=== PATIENT | male | born 1945 | race African-American/Black ===

== ENCOUNTER 2017-02-12 16:11 | Inpatient (IN) | payer MEDICARE, MEDICAID ==
[~2017-02-12] VITALS: Ht 188 cm; Wt 73.9 kg
[~2017-02-12 16:11] MED LIST: CEPHALEXIN500 MG ORAL
[2017-02-12] MEDS ORDERED: Famotidine 20 MG/ 2ML VIAL IVP ONE (16:30)
[2017-02-12] MEDS ORDERED: ACETAMINOPHEN-1 EAC1 ORAL ×2 (17:26)
[2017-02-12] MEDS ORDERED: AMLODIPINE BESYL5 MG ORAL (17:26)
[2017-02-12] MEDS ORDERED: SIMVASTATIN20 MG ORAL (17:26)
[2017-02-12 17:43] VITALS: BP 181/93
[2017-02-12 17:44] LABS: BASOPHILS % (AUTO) 1.5 % (0.0-2.0); EOSINOPHILS % (AUTO) 0.8 % (0.0-3.0); LYMPHOCYTES % (AUTO) 45.5 % (20.0-45.0); MEAN CORPUSCULAR HEMOGLOBIN 32.5 PG (27.0-31.0); MEAN CORPUSCULAR HGB CONC 35.7 G/DL (32.0-36.0); MEAN CORPUSCULAR VOLUME 91 FL (80-99); MEAN PLATELET VOLUME 7.4 FL (6.5-10.1); MONOCYTES % (AUTO) 6.2 % (1.0-10.0); PLATELET COUNT 140 K/UL (150-450); RED CELL DISTRIBUTION WIDTH 11.5 % (11.6-14.8); WHITE BLOOD COUNT 4.1 K/UL (4.8-10.8)
[2017-02-12 17:45] LABS: APPEARANCE,URINE CLEAR; KETONES,URINE NEGATIVE (NEGATIVE); LEUKOCYTE ESTERASE ,URINE 1+ (NEGATIVE); NITRITE,URINE NEGATIVE (NEGATIVE); PH,URINE 6 (4.5-8.0); PROTEIN,URINE NEGATIVE (NEGATIVE); UROBILINOGEN,URINE 4 MG/DL (0.0-1.0)
[2017-02-12 17:52] LABS: RBC,URINE 0-2 /HPF (0 - 0); WBC,URINE 0-2 /HPF (0 - 0)
[2017-02-12 18:05] LABS: ALANINE AMINOTRANSFERASE 30 U/L (3-41); ALBUMIN/GLOBULIN RATIO 1.2 (1.0-2.7); ANION GAP 18 (5-15); ASPARTATE AMINO TRANSFERASE 30 U/L (5-40); CALCIUM 9.6 mg/dL (8.6-10.2); CARBON DIOXIDE 23 mEQ/L (20-30); CHLORIDE 95 mEQ/L (98-107); CREATININE 1.1 mg/dL (0.7-1.2); HEMOLYSIS 12; LIPASE 42 U/L (< 60); POTASSIUM 4.2 mEQ/L (3.4-4.9); SODIUM 136 mEQ/L (135-145); TOTAL PROTEIN 7.8 g/dL (6.6-8.7); TROPONIN I < 0.30 ng/mL (<=0.30)
[2017-02-12 18:16] LABS: CKMB 2.3 ng/mL (< 6.7)
[2017-02-12 20:15] VITALS: BP 179/95
--- NOTE | 2017-02-12 22:49 | Emergency Room Report ---
History of Present Illness General Chief Complaint: General Complaint Source: Medical Record Present Illness HPI 71-year-old male presents to ED for evaluation. Patient states he has no complaints. Feels okay. [id number]. Patient has dementia. PMD Dr. Velázquez stated that patient has been having increased weakness and reduced appetite. Unable to care for himself. No reported fevers chills. No reported chest pain or shortness of breath. No other aggravating relieving factors. No other associated symptoms Allergies: Coded Allergies: No Known Allergies (Unverified , 10/04/13) Patient History Past Medical History: GERD Past Surgical History: none Pertinent Family History: none Social History: Denies: alcohol use, drug use, smoking Immunizations: UTD Reviewed Nursing Documentation: PMH: Agreed, PSxH: Agreed Nursing Documentation-PMH Hx Cardiac Problems: No Hx Hypertension: No Hx Pacemaker: No Hx Asthma: No Hx COPD: No Hx Diabetes: No Hx Cancer: No Hx Gastrointestinal Problems: Yes - gerd Hx Dialysis: No Hx Neurological Problems: No Hx Cerebrovascular Accident: No Hx Seizures: No Review of Systems All Other Systems: negative except mentioned in HPI Physical Exam Vital Signs Date Time Temp Pulse Resp B/P Pulse Ox O2 Delivery O2 Flow Rate FiO2 02/12/17 16:19 98.1 78 16 140/80 98 Room Air Sp02 EP Interpretation: reviewed, normal General Appearance: no apparent distress, GCS 15, non-toxic, other - dementia Head: normocephalic Eyes: bilateral eye PERRL, bilateral eye normal inspection ENT: normal ENT inspection Neck: normal inspection Respiratory: chest non-tender, lungs clear, normal breath sounds, speaking full sentences Cardiovascular #1: regular rate, rhythm, no edema Gastrointestinal: normal bowel sounds, non tender, soft, non-distended, no guarding, no rebound Rectal: deferred Genitourinary: no CVA tenderness Musculoskeletal: normal inspection Neurologic: other - dementia Psychiatric: other - dementia Skin: normal inspection Lymphatic: normal inspection Medical Decision Making Diagnostic Impression: Primary Impression: Failure to thrive Qualified Codes: R62.7 - Adult failure to thrive Additional Impression: Weakness ER Course Hospital Course 71-year-old male presenting to ED with generalized weakness, unable to care for self Differential diagnoses include: Pneumonia, UTI, sepsis, dehydration, failure to thrive Clinical course Patient placed on stretcher. On cardiac nurse specialist with tachycardia. After initial history and physical, I ordered labs, IV fluids, UA. Labs - no leukocytosis, hb/hct stable, electrolytse ok, trop negative Case discussed with Dr Velázquez and they agreed to admit patient to their service for further care and support I feel this is a highly complex case requiring extensive working including EKG/ Rhythm strip, Xray/CT/US, Blood/urine lab work, repeat exams while in ED, and administration of strong opiates/narcotics for pain control, admission to hospital or close patient follow up. Diagnosis - failure to thrive, weakness Patient admitted to floor in serious condition Labs Test 02/12/17 17:31 White Blood Count 4.1 K/UL (4.8-10.8) Red Blood Count 5.10 M/UL (4.70-6.10) Hemoglobin 16.6 G/DL (14.2-18.0) Hematocrit 46.5 % (42.0-52.0) Mean Corpuscular Volume 91 FL (80-99) Mean Corpuscular Hemoglobin 32.5 PG (27.0-31.0) Mean Corpuscular Hemoglobin Concent 35.7 G/DL (32.0-36.0) Red Cell Distribution Width 11.5 % (11.6-14.8) Platelet Count 140 K/UL (150-450) Mean Platelet Volume 7.4 FL (6.5-10.1) Neutrophils (%) (Auto) 46.0 % (45.0-75.0) Lymphocytes (%) (Auto) 45.5 % (20.0-45.0) Monocytes (%) (Auto) 6.2 % (1.0-10.0) Eosinophils (%) (Auto) 0.8 % (0.0-3.0) Basophils (%) (Auto) 1.5 % (0.0-2.0) Urine Color Yellow Urine Appearance Clear Urine pH 6 (4.5-8.0) Urine Specific [place] 1.015 (1.005-1.035) Urine Protein Negative (NEGATIVE) Urine Glucose (UA) Negative (NEGATIVE) Urine Ketones Negative (NEGATIVE) Urine Occult Blood Negative (NEGATIVE) Urine Nitrite Negative (NEGATIVE) Urine Bilirubin Negative (NEGATIVE) Urine Urobilinogen 4 MG/DL (0.0-1.0) Urine Leukocyte Esterase 1+ (NEGATIVE) Urine RBC 0-2 /HPF (0 - 0) Urine WBC 0-2 /HPF (0 - 0) Urine Squamous Epithelial Cells None /LPF (NONE/OCC) Urine Bacteria None /HPF (NONE) Sodium Level 136 mEQ/L (135-145) Potassium Level 4.2 mEQ/L (3.4-4.9) Chloride Level 95 mEQ/L (98-107) Carbon Dioxide Level 23 mEQ/L (20-30) Anion Gap 18 (5-15) Blood Urea Nitrogen 14 mg/dL (7-23) Creatinine 1.1 mg/dL (0.7-1.2) Estimat Glomerular Filtration Rate mL/min (>60) Glucose Level 117 mg/dL (74-106) Calcium Level 9.6 mg/dL (8.6-10.2) Total Bilirubin 0.4 mg/dL (0.0-1.2) Aspartate Amino Transf (AST/SGOT) 30 U/L (5-40) Alanine Aminotransferase (ALT/SGPT) 30 U/L (3-41) Alkaline Phosphatase 89 U/L (40-129) Creatine Kinase MB 2.3 ng/mL (< 6.7) Troponin I < 0.30 ng/mL (<=0.30) Total Protein 7.8 g/dL (6.6-8.7) Albumin 4.4 g/dL (3.5-5.2) Globulin 3.4 g/dL Albumin/Globulin Ratio 1.2 (1.0-2.7) Lipase 42 U/L (< 60) Last Vital Signs Date Time Temp Pulse Resp B/P Pulse Ox O2 Delivery O2 Flow Rate FiO2 02/12/17 20:15 97.3 87 22 179/95 98 Room Air Status: improved Disposition: ADMITTED INPATIENT Condition: Serious Referrals: FRANK VELÁZQUEZ (PCP) KELLY CAMPBELL M.D. February 12, 2017 22:49
[2017-02-12] MEDS ORDERED: Zolpidem 5mg tab ORAL PRN (23:00)
[2017-02-12] MEDS ORDERED: Mylanta II UD 30ml ORAL PRN (23:00)
[2017-02-12] MEDS ORDERED: Miralax 17gm pkt ORAL PRN (23:00)
[2017-02-12] MEDS ORDERED: LORazepam Inj 2mg/ml 1ml IV PRN (23:00)
[2017-02-13] VITALS (7 sets, daily range): BP systolic 131–161; BP diastolic 76–110
[2017-02-13] MEDS: Morphine Sulfate 2mg/ml Inj IVP PRN ×2 (06:22→18:00)
[2017-02-13 07:08] LABS: EOSINOPHILS % (AUTO) 0.3 % (0.0-3.0); LYMPHOCYTES % (AUTO) 17.2 % (20.0-45.0); MEAN CORPUSCULAR HEMOGLOBIN 30.3 PG (27.0-31.0); MEAN CORPUSCULAR HGB CONC 33.8 G/DL (32.0-36.0); MEAN CORPUSCULAR VOLUME 90 FL (80-99); MEAN PLATELET VOLUME 7.3 FL (6.5-10.1); MONOCYTES % (AUTO) 4.5 % (1.0-10.0); PLATELET COUNT 182 K/UL (150-450); RED BLOOD COUNT 5.16 M/UL (4.70-6.10); RED CELL DISTRIBUTION WIDTH 11.3 % (11.6-14.8); WHITE BLOOD COUNT 5.1 K/UL (4.8-10.8)
[2017-02-13 08:30] LABS: ALANINE AMINOTRANSFERASE 29 U/L (3-41); ALBUMIN/GLOBULIN RATIO 1.4 (1.0-2.7); ANION GAP 18 (5-15); ASPARTATE AMINO TRANSFERASE 30 U/L (5-40); CALCIUM 9.6 mg/dL (8.6-10.2); CARBON DIOXIDE 22 mEQ/L (20-30); CHLORIDE 95 mEQ/L (98-107); CHOLESTEROL 169 mg/dL (< 200); CHOLESTEROL/HDL RATIO 2.3 (3.3-4.4); HEMOLYSIS 83; LDL CHOLESTEROL (CALC.) 73 mg/dL (60-99); POTASSIUM 4.5 mEQ/L (3.4-4.9); SODIUM 135 mEQ/L (135-145); TOTAL PROTEIN 7.3 g/dL (6.6-8.7)
--- NOTE | 2017-02-13 15:15 | History and Physical ---
History of Present Illness General Date patient seen: February 13, 2017 Reason for Hospitalization: General Complaint Present Illness HPI 71-year-old male with hx of HTN, dementia presented to ED for evaluation of increased weakness and reduced appetite. Unable to care for himself. No reported fevers chills. No reported chest pain or shortness of breath. He had an arterial doppler us of legs in the assisted living facility, which was positive. Therefore he is admitted to [facility] [place] for further evaluation of increasing weakness. Allergies: Coded Allergies: No Known Allergies (Unverified , 10/04/13) Medication History Scheduled Amlodipine Besylate* (Amlodipine Besylate*), 5 MG ORAL BID, (Reported) Simvastatin (Zocor), 20 MG ORAL BEDTIME, (Reported) Scheduled PRN Acetaminophen With Codeine (T#3) (Tylenol #3 Tab*), 1 TAB ORAL Q4H PRN for For Pain, (Reported) Acetaminophen With Codeine (T#3) (Tylenol #3 Tab*), 1 TAB ORAL EVERY 8 HOURS PRN for For Pain, (Reported) Discontinued Medications Cephalexin* (Keflex*), 500 MG ORAL EVERY 6 HOURS Discontinued Reason: Therapy completed Patient History Healthcare decision maker pt A&Ox4 Resuscitation status Full Code Advanced Directive on File Physical Exam General Appearance: WD/WN, no apparent distress Lines, tubes and drains: peripheral, central line HEENT: normocephalic, atraumatic Neck: non-tender, normal alignment Respiratory/Chest: chest wall non-tender, lungs clear Cardiovascular/Chest: normal peripheral pulses, normal rate Abdomen: normal bowel sounds, non tender Genitourinary/Rectal: normal genital exam Extremities: normal range of motion, non-pitting Neurologic: plan consultant II-XII grossly normal Last 24 Hour Vital Signs Date Time Temp Pulse Resp B/P Pulse Ox O2 Delivery O2 Flow Rate FiO2 02/13/17 12:15 97.1 89 20 131/89 97 Room Air 02/13/17 08:16 96 140/76 02/13/17 08:00 98.0 96 16 140/76 98 Room Air 02/13/17 04:00 97.5 62 20 137/77 98 Room Air 02/13/17 00:00 97.5 85 20 160/109 98 Room Air 02/12/17 20:15 97.3 87 22 179/95 98 Room Air 02/12/17 20:10 98.1 74 13 173/111 99 Room Air 02/12/17 19:49 173/111 02/12/17 17:43 69 10 181/93 100 Room Air 02/12/17 16:19 98.1 78 16 140/80 98 Room Air Intake and Output 02/12/17 02/13/17 19:00 07:00 Output Total 410 ml 700 ml Balance -410 ml -700 ml Output Urine Total 410 ml 700 ml Laboratory Tests Test 02/12/17 17:31 02/13/17 04:35 White Blood Count 4.1 K/UL (4.8-10.8) L 5.1 K/UL (4.8-10.8) Red Blood Count 5.10 M/UL (4.70-6.10) 5.16 M/UL (4.70-6.10) Hemoglobin 16.6 G/DL (14.2-18.0) 15.6 G/DL (14.2-18.0) Hematocrit 46.5 % (42.0-52.0) 46.3 % (42.0-52.0) Mean Corpuscular Volume 91 FL (80-99) 90 FL (80-99) Mean Corpuscular Hemoglobin 32.5 PG (27.0-31.0) H 30.3 PG (27.0-31.0) Mean Corpuscular Hemoglobin Concent 35.7 G/DL (32.0-36.0) 33.8 G/DL (32.0-36.0) Red Cell Distribution Width 11.5 % (11.6-14.8) L 11.3 % (11.6-14.8) L Platelet Count 140 K/UL (150-450) L 182 K/UL (150-450) Mean Platelet Volume 7.4 FL (6.5-10.1) 7.3 FL (6.5-10.1) Neutrophils (%) (Auto) 46.0 % (45.0-75.0) 77.0 % (45.0-75.0) H Lymphocytes (%) (Auto) 45.5 % (20.0-45.0) H 17.2 % (20.0-45.0) L Monocytes (%) (Auto) 6.2 % (1.0-10.0) 4.5 % (1.0-10.0) Eosinophils (%) (Auto) 0.8 % (0.0-3.0) 0.3 % (0.0-3.0) Basophils (%) (Auto) 1.5 % (0.0-2.0) 1.0 % (0.0-2.0) Urine Color Yellow Urine Appearance Clear Urine pH 6 (4.5-8.0) Urine Specific [place] 1.015 (1.005-1.035) Urine Protein Negative (NEGATIVE) Urine Glucose (UA) Negative (NEGATIVE) Urine Ketones Negative (NEGATIVE) Urine Occult Blood Negative (NEGATIVE) Urine Nitrite Negative (NEGATIVE) Urine Bilirubin Negative (NEGATIVE) Urine Urobilinogen 4 MG/DL (0.0-1.0) H Urine Leukocyte Esterase 1+ (NEGATIVE) H Urine RBC 0-2 /HPF (0 - 0) H Urine WBC 0-2 /HPF (0 - 0) Urine Squamous Epithelial Cells None /LPF (NONE/OCC) Urine Bacteria None /HPF (NONE) Sodium Level 136 mEQ/L (135-145) 135 mEQ/L (135-145) Potassium Level 4.2 mEQ/L (3.4-4.9) 4.5 mEQ/L (3.4-4.9) Chloride Level 95 mEQ/L (98-107) L 95 mEQ/L (98-107) L Carbon Dioxide Level 23 mEQ/L (20-30) 22 mEQ/L (20-30) Anion Gap 18 (5-15) H 18 (5-15) H Blood Urea Nitrogen 14 mg/dL (7-23) 11 mg/dL (7-23) Creatinine 1.1 mg/dL (0.7-1.2) 1.0 mg/dL (0.7-1.2) Estimat Glomerular Filtration Rate mL/min (>60) mL/min (>60) Glucose Level 117 mg/dL (74-106) H 101 mg/dL (74-106) Calcium Level 9.6 mg/dL (8.6-10.2) 9.6 mg/dL (8.6-10.2) Total Bilirubin 0.4 mg/dL (0.0-1.2) 0.7 mg/dL (0.0-1.2) Aspartate Amino Transf (AST/SGOT) 30 U/L (5-40) 30 U/L (5-40) Alanine Aminotransferase (ALT/SGPT) 30 U/L (3-41) 29 U/L (3-41) Alkaline Phosphatase 89 U/L (40-129) 70 U/L (40-129) Creatine Kinase MB 2.3 ng/mL (< 6.7) Troponin I < 0.30 ng/mL (<=0.30) Total Protein 7.8 g/dL (6.6-8.7) 7.3 g/dL (6.6-8.7) Albumin 4.4 g/dL (3.5-5.2) 4.3 g/dL (3.5-5.2) Globulin 3.4 g/dL 3.0 g/dL Albumin/Globulin Ratio 1.2 (1.0-2.7) 1.4 (1.0-2.7) Lipase 42 U/L (< 60) Triglycerides Level 107 mg/dL (< 150) Cholesterol Level 169 mg/dL (< 200) LDL Cholesterol 73 mg/dL (60-99) HDL Cholesterol 75 mg/dL (> 60) H Cholesterol/HDL Ratio 2.3 (3.3-4.4) L Thyroid Stimulating Hormone (TSH) 1.100 uIU/mL (0.300-4.500) Height (Feet): 6 Height (Inches): 2.00 Weight (Pounds): 163 Medications Current Medications Medications (Trade) Dose Ordered Sig/Ac Route PRN Reason Start Time Stop Time Status Last Admin Dose Admin Acetaminophen (Tylenol) 650 mg Q4H PRN ORAL fever 02/12/17 23:00 03/14/17 22:59 Al Hydroxide/Mg Hydroxide (Mylanta II) 30 ml Q6H PRN ORAL dyspepsia 02/12/17 23:00 03/14/17 22:59 Amlodipine Besylate (Norvasc) 5 mg BID ORAL 02/13/17 09:00 03/15/17 08:59 02/13/17 08:16 Clonidine HCl (Catapres) 0.1 mg Q4H PRN ORAL For High Blood Pressure 02/12/17 23:00 03/14/17 22:59 Dextrose (Dextrose 50%) STAT PRN IV Hypoglycemia 5/18/17 23:00 03/14/17 22:59 Lorazepam (Ativan 2mg/ml 1ml) 0.5 mg Q4H PRN IV For Anxiety 02/12/17 23:00 02/19/17 22:59 Morphine Sulfate (Morphine Sulfate) 1 mg Q4H PRN IVP For Pain 02/12/17 23:00 02/19/17 22:59 02/13/17 06:22 Ondansetron HCl (Zofran) 4 mg Q6H PRN IVP Nausea & Vomiting 02/12/17 23:00 03/14/17 22:59 Polyethylene Glycol (Miralax) 17 gm HSPRN PRN ORAL Constipation 02/12/17 23:00 03/14/17 22:59 Zolpidem Tartrate (Ambien) 5 mg HSPRN PRN ORAL Insomnia 02/12/17 23:00 03/14/17 22:59 Assessment/Plan Problem List: (1) Encounter for generalized patient complaints ICD Codes: Z00.8 - Encounter for other general examination SNOMED: 012488346 (2) Failure to thrive SNOMED: 08272557 Qualifiers: Qualified Codes: R62.7 - Adult failure to thrive (3) PVD (peripheral vascular disease) ICD Codes: I73.9 - Peripheral vascular disease, unspecified SNOMED: 055760820 (4) HTN (hypertension) ICD Codes: I10 - Essential (primary) hypertension SNOMED: 71423559 (5) Weakness ICD Codes: R53.1 - Weakness SNOMED: 73639679 Assessment/Plan neuro evaluation pt/ot evaluation vascular studies of legs. FRANK APARICIO February 13, 2017 15:15
--- NOTE | 2017-02-13 18:24 | Neurology Progress Note ---
Objective Physical Exam Last Vital Signs Date Time Temp Pulse Resp B/P Pulse Ox O2 Delivery O2 Flow Rate FiO2 02/13/17 17:47 88 150/88 02/13/17 16:10 98.1 20 96 Room Air Laboratory Tests Test 02/13/17 04:35 White Blood Count 5.1 K/UL (4.8-10.8) Red Blood Count 5.16 M/UL (4.70-6.10) Hemoglobin 15.6 G/DL (14.2-18.0) Hematocrit 46.3 % (42.0-52.0) Mean Corpuscular Volume 90 FL (80-99) Mean Corpuscular Hemoglobin 30.3 PG (27.0-31.0) Mean Corpuscular Hemoglobin Concent 33.8 G/DL (32.0-36.0) Red Cell Distribution Width 11.3 % (11.6-14.8) L Platelet Count 182 K/UL (150-450) Mean Platelet Volume 7.3 FL (6.5-10.1) Neutrophils (%) (Auto) 77.0 % (45.0-75.0) H Lymphocytes (%) (Auto) 17.2 % (20.0-45.0) L Monocytes (%) (Auto) 4.5 % (1.0-10.0) Eosinophils (%) (Auto) 0.3 % (0.0-3.0) Basophils (%) (Auto) 1.0 % (0.0-2.0) Sodium Level 135 mEQ/L (135-145) Potassium Level 4.5 mEQ/L (3.4-4.9) Chloride Level 95 mEQ/L (98-107) L Carbon Dioxide Level 22 mEQ/L (20-30) Anion Gap 18 (5-15) H Blood Urea Nitrogen 11 mg/dL (7-23) Creatinine 1.0 mg/dL (0.7-1.2) Estimat Glomerular Filtration Rate mL/min (>60) Glucose Level 101 mg/dL (74-106) Calcium Level 9.6 mg/dL (8.6-10.2) Total Bilirubin 0.7 mg/dL (0.0-1.2) Aspartate Amino Transf (AST/SGOT) 30 U/L (5-40) Alanine Aminotransferase (ALT/SGPT) 29 U/L (3-41) Alkaline Phosphatase 70 U/L (40-129) Total Protein 7.3 g/dL (6.6-8.7) Albumin 4.3 g/dL (3.5-5.2) Globulin 3.0 g/dL Albumin/Globulin Ratio 1.4 (1.0-2.7) Triglycerides Level 107 mg/dL (< 150) Cholesterol Level 169 mg/dL (< 200) LDL Cholesterol 73 mg/dL (60-99) HDL Cholesterol 75 mg/dL (> 60) H Cholesterol/HDL Ratio 2.3 (3.3-4.4) L Thyroid Stimulating Hormone (TSH) 1.100 uIU/mL (0.300-4.500) Impression/Recommendations Recommendations #[id number] DUONG DUMONT February 13, 2017 18:24
[2017-02-13] MEDS: Aspirin Baby 81mg ORAL SCH (20:20)
--- NOTE | 2017-02-13 23:01 | Consultation ---
DATE OF CONSULTATION: 02/13/2017 NEUROLOGICAL CONSULTATION REQUESTING PHYSICIAN: Nataliya Velázquez M.D. HISTORY OF PRESENT ILLNESS: This is a 71-year-old gentleman seen in neurological consultation for presumed generalized weakness, difficulty ambulation, and failure to thrive. The patient informed me that he has no complaints. He overall feels fairly well, but he has some balance issues and he is using a cane for sometime, this is not improving, but rather getting worse. The patient reportedly had lack of appetite and difficulty taking care of himself. He was brought to this hospital for further comprehensive assessment. His vital signs on admission were stable. He was afebrile. Blood pressure 140/80. Diagnostic studies, venous Dopplers of both lower extremities are negative. Lab work was obtained revealing CBC study with a WBC of 4.1. Chemistry panel is normal, lipase, TSH, lipid panel, and troponin. Anion gap of 18. Blood sugar 117, otherwise normal study. Urinalysis was unremarkable. Following admission till present, there was no further change in his status. Most recent hospitalization was in 2013 when the patient presented with signs of cerebral concussion and generalized weakness. The patient tells me that there are no major medical issues. MEDICATIONS: Treatment included simvastatin and amlodipine that suggest previous hyperlipidemia and hypertension. He is on Tylenol with Codeine for pain management. ALLERGIES: None reported. SOCIAL HISTORY: Lives in a board and care facility. FAMILY HISTORY: Unavailable. The patient indicated that he has no close family. He is . No children. SOCIAL HISTORY: He is a smoker, but denies alcohol or drug abuse. REVIEW OF SYMPTOMS: The patient feels fairly well. He has no complaints. Denying headache or dizziness. No chest pain or palpitations. No respiratory problems. Admit to having difficulty ambulation and using cane. PHYSICAL EXAMINATION: GENERAL: The patient is a well-developed and well-nourished man, not in acute distress, lying comfortably in bed. VITAL SIGNS: Stable. Blood pressure 162/92 and temperature 97.1 degrees. HEENT: Head is normocephalic. There is no evidence of trauma. Eyes, ears, and throat are clear. NECK: Supple. No meningeal signs. MUSCULOSKELETAL EXAMINATION: Unremarkable except venous stasis in both lower extremities. Peripheral pulses 1+ symmetric. MENTAL STATUS: The patient is alert and oriented to his name, age, place, address, and time. He is a poor historian, and unable to provide any medical information. He is cooperative and follows instructions. CRANIAL NERVE II: Pupils both responding to light and accommodation. Extraocular movement intact. No nystagmus. CRANIAL NERVE V: Normal corneal responses. CRANIAL NERVE VII: No facial asymmetry. CRANIAL NERVE VIII: Slight decrease in hearing. CRANIAL NERVES IX THROUGH XII: Tongue is in midline. Symmetric palate elevation. MOTOR EXAMINATION: Revealed normal muscle tone in both upper extremities, but increased rigidity with both lower extremities. Deep tendon reflexes 2+ bilaterally. Plantar responses are flexor. SENSORY EXAMINATION: Withdrawing to pin stimulation in both upper and lower extremities. Gait is unsteady, limping to the left and using cane. IMPRESSION: 1. This is a 71-year-old man with progressive gait abnormality, mild cognitive impairment, rule out normal pressure hydrocephalus, rule out senile dementia, and rule out multiple lacunar strokes. 2. History of hypertension. 3. History of hyperlipidemia. RECOMMENDATION: CAT scan of the brain without contrast. Calorie count. PT and OT for mobility protocol. Start on aspirin 81 mg daily. Thank you for allowing me to see this interesting patient in neurological consultation. Michele Johnston M.D. DR: AMIRA JOB#: [id number] CC:
[2017-02-14] VITALS (7 sets, daily range): BP systolic 118–154; BP diastolic 75–103
[2017-02-14] MEDS: Aspirin Baby 81mg ORAL SCH (08:14)
[2017-02-14] MEDS: Morphine Sulfate 2mg/ml Inj IVP PRN ×3 (08:14→17:13)
--- NOTE | 2017-02-14 09:50 | Diagnostic Imaging Report ---
Indications: Altered mental status Technique: Continuous helical CT imaging of the brain was performed with automatic exposure control on a Siemens sensation [address] scanner. Axial and coronal images were reconstructed at 5 mm slice thickness and interval. CTDI volume(s): 70 mGy Total DLP: 1428 mGy-cm Findings: Comparison: 10/04/2013 A new wedge-shaped, peripherally based area of low attenuation/parenchymal loss has developed in the right cerebellar hemisphere. Additional foci/areas of low attenuation/parenchymal loss in the bilateral basal ganglia regions, left frontal and high right parietal lobes are unchanged. Extensive chronic microvascular ischemic changes throughout the bilateral periventricular deep white matter are unchanged.. No evidence of mass or hemorrhage, other attenuation abnormality, mass effect, midline shift, hydrocephalus or increased intracranial pressure. Bone window images are unremarkable. Bilateral mastoid air cell hypoplasia and partial opacification unchanged. Visualized paranasal sinuses remain clear. IMPRESSION: No evidence of acute intracranial pathology, unchanged Interval development of chronic appearing encephalomalacia right cerebellar hemisphere, likely old infarct Multiple additional foci/areas of chronic encephalomalacia as described, unchanged Extensive chronic microvascular ischemic changes bilateral cerebral white matter unchanged Atrophy unchanged. This correlates with [employer] preliminary report. The CT scanner at [facility] is accredited by the [employer] and the scans are performed using protocols designed to limit radiation exposure to as low as reasonably achievable to attain images of sufficient resolution adequate for diagnostic evaluation.
--- NOTE | 2017-02-14 16:11 | Pulmonology Progress Note ---
Assessment/Plan Assessment/Plan ASSESSMENT progressive gait abnormality, mild cognitive impairment, rule out normal pressure hydrocephalus, rule out senile dementia, and rule out multiple lacunar strokes. 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 PVD possible peripheral neuropathy generalized weakness hx of hyperlipidemia PLAN OF CARE MS floor neuro eval noted and appreciated CT head with no evidence of acute intracranial pathology, unchanged Interval development of chronic appearing encephalomalacia right cerebellar hemisphere, likely old infarct Multiple additional foci/areas of chronic encephalomalacia as described, unchanged Extensive chronic microvascular ischemic changes bilateral cerebral white matter No evidence of NPH on ASA venous Duplex BLE negative Arterial Duplex BLE pending BP management with CCB and Clonidine prn Lipid panel stable PT/OT fall precautions Bowel regimen DVT prophylaxis pain management Subjective Allergies: Coded Allergies: No Known Allergies (Unverified , 10/04/13) Subjective denies chest pain, SOB, seen and evaluated by neuro reports pain in bilateral feet ( plantar area), described as intermittent burning , gnawing Objective Last 24 Hour Vital Signs Date Time Temp Pulse Resp B/P Pulse Ox O2 Delivery O2 Flow Rate FiO2 02/14/17 13:08 99.3 02/14/17 12:00 99.3 80 18 150/100 97 Room Air 02/14/17 08:15 98.1 85 19 154/98 95 Room Air 02/14/17 08:14 76 154/103 02/14/17 04:20 99.0 76 18 154/103 97 Room Air 02/14/17 00:16 97.7 77 20 139/99 97 Room Air 02/13/17 20:32 161/99 02/13/17 20:27 84 161/99 02/13/17 20:04 98.1 46 17 147/110 97 Room Air 02/13/17 17:47 88 150/88 02/13/17 16:10 98.1 89 20 161/92 96 Room Air Intake and Output 02/13/17 02/14/17 19:00 07:00 Intake Total 1040 ml Output Total 650 ml Balance 390 ml Intake Oral 1040 ml Output Urine Total 650 ml # Voids 3 2 General Appearance: no acute distress HEENT: normocephalic, atraumatic, anicteric Respiratory/Chest: lungs clear, no respiratory distress Cardiovascular: normal rate, regular rhythm, no JVD Abdomen: normal bowel sounds, soft, non tender, non distended Extremities: no edema, pedal pulses normal Neurologic/Psychiatric: abnormal gait - unsteady , alert, responsive Musculoskeletal: normal muscle bulk Microbiology Date/Time Source Procedure Growth Status 02/12/17 19:17 Nasal Nares MRSA Culture - Final NO METHICILLIN RESISTANT STAPH AUREUS... Complete Laboratory Tests 02/13/17 20:20: Vitamin B12 Level 377, Vitamin D 25-Hydroxy [Pending], 25-Hydroxy Vitamin D2 [ Pending], 25-Hydroxy Vitamin D3 [Pending] Current Medications Medications (Trade) Dose Ordered Sig/Ac Route PRN Reason Start Time Stop Time Status Last Admin Dose Admin Acetaminophen (Tylenol) 650 mg Q4H PRN ORAL fever 02/12/17 23:00 03/14/17 22:59 Al Hydroxide/Mg Hydroxide (Mylanta II) 30 ml Q6H PRN ORAL dyspepsia 02/12/17 23:00 03/14/17 22:59 Amlodipine Besylate (Norvasc) 5 mg BID ORAL 02/13/17 09:00 03/15/17 08:59 02/14/17 08:14 Aspirin (ASA) 81 mg DAILY ORAL 02/13/17 20:00 03/15/17 19:59 02/14/17 08:14 Clonidine HCl (Catapres) 0.1 mg Q4H PRN ORAL For High Blood Pressure 02/12/17 23:00 03/14/17 22:59 02/13/17 20:32 Dextrose (Dextrose 50%) STAT PRN IV Hypoglycemia 02/12/17 23:00 03/14/17 22:59 Lorazepam (Ativan 2mg/ml 1ml) 0.5 mg Q4H PRN IV For Anxiety 02/12/17 23:00 02/19/17 22:59 Morphine Sulfate (Morphine Sulfate) 1 mg Q4H PRN IVP For Pain 02/12/17 23:00 02/19/17 22:59 02/14/17 12:38 Ondansetron HCl (Zofran) 4 mg Q6H PRN IVP Nausea & Vomiting 02/12/17 23:00 03/14/17 22:59 Polyethylene Glycol (Miralax) 17 gm HSPRN PRN ORAL Constipation 02/12/17 23:00 03/14/17 22:59 Zolpidem Tartrate (Ambien) 5 mg HSPRN PRN ORAL Insomnia 02/12/17 23:00 03/14/17 22:59 [place] ([facility])Kesha NP February 14, 2017 16:11
[2017-02-14] MEDS: Heparin 5000 units/ml inj SUBQ SCH (20:54)
[2017-02-15 04:00] VITALS: BP 120/72
[2017-02-15 08:00] VITALS: BP 125/77
[2017-02-15] MEDS: Morphine Sulfate 2mg/ml Inj IVP PRN ×3 (08:12→20:08)
[2017-02-15] MEDS: Aspirin Baby 81mg ORAL SCH (08:12)
[2017-02-15] MEDS: Heparin 5000 units/ml inj SUBQ SCH ×2 (08:17→20:09)
--- NOTE | 2017-02-15 11:19 | Pulmonology Progress Note ---
Assessment/Plan Assessment/Plan ASSESSMENT progressive gait abnormality, mild cognitive impairment, rule out normal pressure hydrocephalus, rule out senile dementia, and rule out multiple lacunar strokes. 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 PVD possible peripheral neuropathy generalized weakness hx of hyperlipidemia PLAN OF CARE MS floor neuro eval noted and appreciated CT head with no evidence of acute intracranial pathology, unchanged Interval development of chronic appearing encephalomalacia right cerebellar hemisphere, likely old infarct Multiple additional foci/areas of chronic encephalomalacia as described, unchanged Extensive chronic microvascular ischemic changes bilateral cerebral white matter No evidence of NPH on ASA venous Duplex BLE negative Arterial Duplex BLE pending BP management with CCB and Clonidine prn Lipid panel stable PT/OT fall precautions Bowel regimen DVT prophylaxis pain management, add Neurontin Subjective Allergies: Coded Allergies: No Known Allergies (Unverified , 10/04/13) Subjective denies chest pain, SOB, seen and evaluated by neuro reports pain in bilateral feet ( plantar area), described as intermittent burning , gnawing Objective Last 24 Hour Vital Signs Date Time Temp Pulse Resp B/P Pulse Ox O2 Delivery O2 Flow Rate FiO2 02/15/17 08:42 97.2 02/15/17 08:12 70 120/72 02/15/17 08:00 98.2 79 20 125/77 96 Room Air 02/15/17 04:00 97.2 70 20 120/72 100 Room Air 02/14/17 23:54 97.7 68 20 144/93 96 Room Air 02/14/17 20:15 98.2 83 20 129/76 94 Room Air 02/14/17 17:13 80 150/100 02/14/17 16:00 99.7 81 19 118/75 98 Room Air 02/14/17 12:00 99.3 80 18 150/100 97 Room Air Objective General Appearance: no acute distress HEENT: normocephalic, atraumatic, anicteric Respiratory/Chest: lungs clear, no respiratory distress Cardiovascular: normal rate, regular rhythm, no JVD Abdomen: normal bowel sounds, soft, non tender, non distended Extremities: no edema, pedal pulses normal Neurologic/Psychiatric: abnormal gait - unsteady , alert, responsive Musculoskeletal: normal muscle bulk Microbiology Date/Time Source Procedure Growth Status 02/12/17 19:17 Nasal Nares MRSA Culture - Final NO METHICILLIN RESISTANT STAPH AUREUS... Complete 02/12/17 19:17 Rectum VRE Culture - Final NO VANCOMYCIN RESISTANT ENTEROCOCCUS ... Complete Current Medications Medications (Trade) Dose Ordered Sig/Ac Route PRN Reason Start Time Stop Time Status Last Admin Dose Admin Acetaminophen (Tylenol) 650 mg Q4H PRN ORAL fever 02/12/17 23:00 03/14/17 22:59 Al Hydroxide/Mg Hydroxide (Mylanta II) 30 ml Q6H PRN ORAL dyspepsia 02/12/17 23:00 03/14/17 22:59 Amlodipine Besylate (Norvasc) 5 mg BID ORAL 02/13/17 09:00 03/15/17 08:59 02/15/17 08:12 Aspirin (ASA) 81 mg DAILY ORAL 02/13/17 20:00 03/15/17 19:59 02/15/17 08:12 Clonidine HCl (Catapres) 0.1 mg Q4H PRN ORAL For High Blood Pressure 02/12/17 23:00 03/14/17 22:59 02/13/17 20:32 Dextrose (Dextrose 50%) STAT PRN IV Hypoglycemia 02/12/17 23:00 03/14/17 22:59 Heparin Sodium (Porcine) (Heparin 5000 units/ml) 5,000 units EVERY 12 HOURS SUBQ 02/14/17 21:00 03/16/17 20:59 02/15/17 08:17 Lorazepam (Ativan 2mg/ml 1ml) 0.5 mg Q4H PRN IV For Anxiety 02/12/17 23:00 02/19/17 22:59 Morphine Sulfate (Morphine Sulfate) 1 mg Q4H PRN IVP For Pain 02/12/17 23:00 02/19/17 22:59 02/15/17 08:12 Ondansetron HCl (Zofran) 4 mg Q6H PRN IVP Nausea & Vomiting 02/12/17 23:00 03/14/17 22:59 Polyethylene Glycol (Miralax) 17 gm HSPRN PRN ORAL Constipation 02/12/17 23:00 03/14/17 22:59 Zolpidem Tartrate (Ambien) 5 mg HSPRN PRN ORAL Insomnia 02/12/17 23:00 03/14/17 22:59 eKsha Hooker NP (Vanchtein) February 15, 2017 11:19
[2017-02-15 12:00] VITALS: BP 132/86
[2017-02-15 16:00] VITALS: BP 136/96
[2017-02-15 20:00] VITALS: BP 152/92
[2017-02-16 04:12] VITALS: BP 143/90
[2017-02-16 07:01] LABS: BASOPHILS % (AUTO) 1.4 % (0.0-2.0); LYMPHOCYTES % (AUTO) 37.9 % (20.0-45.0); MEAN CORPUSCULAR HEMOGLOBIN 30.1 PG (27.0-31.0); MEAN CORPUSCULAR HGB CONC 33.9 G/DL (32.0-36.0); MEAN CORPUSCULAR VOLUME 89 FL (80-99); MONOCYTES % (AUTO) 8.8 % (1.0-10.0); PLATELET COUNT 187 K/UL (150-450); RED BLOOD COUNT 4.59 M/UL (4.70-6.10); RED CELL DISTRIBUTION WIDTH 11.1 % (11.6-14.8); WHITE BLOOD COUNT 5.3 K/UL (4.8-10.8)
[2017-02-16 07:36] LABS: ANION GAP 15 (5-15); CALCIUM 9.2 mg/dL (8.6-10.2); CARBON DIOXIDE 24 mEQ/L (20-30); CHLORIDE 100 mEQ/L (98-107); CREATININE 1.1 mg/dL (0.7-1.2); HEMOLYSIS 9; POTASSIUM 4.1 mEQ/L (3.4-4.9); SODIUM 139 mEQ/L (135-145)
[2017-02-16 08:12] VITALS: BP 140/72
--- NOTE | 2017-02-16 08:33 | Cardiology Report ---
APPROVED REPORT EXAM: Two-dimensional and M-mode echocardiogram with Doppler and color Doppler. INDICATION Left ventricular function M-Mode DIMENSIONS IVSd1.1 (0.7-1.1cm)Left Atrium (MM)4.0 (1.6-4.0cm) LVDd3.7 (3.5-5.6cm)Aortic Root3.2 (2.0-3.7cm) PWd1.0 (0.7-1.1cm)Aortic Cusp Exc.2.0 (1.5-2.0cm) LVDs2.0 (2.5-4.0cm) PWs1.4 cm Further Testing Further Testing : Technically difficult study due to poor acoustic windows/ Study quality precludes accurate assessment of regional wall motion. Normal left ventricular chamber size, systolic function and wall motion. Left ventricular ejection fraction estimated to be %. Concentric left ventricular hypertrophy. Anterior Echo-free space, may be due to pericardial fat or effusion./ No evidence of ventricular hypertrophy. All other cardiac chamber sizes are within normal limits. Focal aortic valve sclerosis with adequate cusp excursion Thickened mitral valve leaflets with normal excursion. Mitral annulus and aortic root calcification. Pulmonic valve not well visualized. Normal tricuspid valve structure. IVC dilated at 2.3cm with physiologic collapse. A color flow and spectral Doppler study was performed and revealed: Trace aortic regurgitation. Trace mitral regurgitation. Mitral inflow velocities indicates possible pseudo normalization pattern implying significant left ventricular diastolic dysfunction./ Mitral diastolic velocities suggest reduced left ventricular relaxation (diastolic dysfunction). Trace tricuspid regurgitation. Tricuspid systolic velocities suggests peak right ventricular systolic pressure of 17 mmHg Pulmonic regurgitation present. Technically difficult study due to poor acoustic windows. Study quality precludes accurate assessment of regional wall motion. Normal left ventricular chamber size, systolic function and wall motion. Left ventricular ejection fraction estimated to be 55 -60%. No evidence of ventricular hypertrophy. Anterior Echo-free space, may be due to pericardial fat or effusion. All other cardiac chamber sizes are within normal limits. Mild focal aortic valve sclerosis with adequate cusp excursion. Mildly thickened mitral valve leaflets with normal excursion. Mild mitral annulus and aortic root calcification. Pulmonic valve not visualized. Normal tricuspid valve structure. IVC at normal size with physiologic collapse. A color flow and spectral Doppler study was performed and revealed: No aortic regurgitation. Mild mitral regurgitation. Mitral diastolic velocities suggest reduced left ventricular relaxation (Grade I). No tricuspid regurgitation. No pulmonic regurgitation present.
[2017-02-16] MEDS: Aspirin Baby 81mg ORAL SCH (08:50)
[2017-02-16] MEDS: Heparin 5000 units/ml inj SUBQ SCH (08:54)
[2017-02-16] MEDS ORDERED: MIRALAX17 G2 ORAL (10:01)
[2017-02-16] MEDS ORDERED: GABAPENTIN100 MG ORAL (10:01)
[2017-02-16 12:00] VITALS: BP 146/90
--- NOTE | 2017-02-16 23:15 | Pulmonology Progress Note ---
Assessment/Plan Problems: (1) Encounter for generalized patient complaints (2) Failure to thrive (3) PVD (peripheral vascular disease) (4) HTN (hypertension) (5) Weakness Assessment/Plan all reviewed neuro recommendation reviewe pt/ot ok to dc to previous setting Subjective ROS Limited/Unobtainable: No Allergies: Coded Allergies: No Known Allergies (Unverified , 10/04/13) Objective Last 24 Hour Vital Signs Date Time Temp Pulse Resp B/P Pulse Ox O2 Delivery O2 Flow Rate FiO2 02/16/17 12:00 97.3 71 18 146/90 100 Room Air 02/16/17 08:50 72 140/72 02/16/17 08:12 97.1 72 20 140/72 98 Room Air 02/16/17 04:12 98.0 76 16 143/90 96 Room Air Intake and Output 02/15/17 02/16/17 19:00 07:00 Intake Total 420 ml 420 ml Balance 420 ml 420 ml Intake Oral 420 ml 420 ml # Voids 2 3 Objective General Appearance: WD/WN HEENT: normocephalic, atraumatic Respiratory/Chest: chest wall non-tender, lungs clear Cardiovascular: normal peripheral pulses, normal rate Abdomen: normal bowel sounds, no organomegaly Genitourinary: normal external genitalia Neurologic/Psychiatric: manager commercial II-XII grossly normal General Appearance: WD/WN HEENT: normocephalic Laboratory Tests 02/16/17 05:20: White Blood Count 5.3, Red Blood Count 4.59L, Hemoglobin 13.8L, Hematocrit 40.8L , Mean Corpuscular Volume 89, Mean Corpuscular Hemoglobin 30.1, Mean Corpuscular Hemoglobin Concent 33.9, Red Cell Distribution Width 11.1L, Platelet Count 187, Mean Platelet Volume 7.0, Neutrophils (%) (Auto) 51.0, Lymphocytes (%) (Auto) 37.9, Monocytes (%) (Auto) 8.8, Eosinophils (%) (Auto) 1.0, Basophils (%) (Auto) 1.4, Sodium Level 139, Potassium Level 4.1, Chloride Level 100, Carbon Dioxide Level 24, Anion Gap 15, Blood Urea Nitrogen 21, Creatinine 1.1, Estimat Glomerular Filtration Rate , Glucose Level 95, Calcium Level 9.2 FRANK APARICIO February 16, 2017 23:15
--- NOTE | 2017-02-17 14:41 | Discharge Summary ---
Discharge Summary Hospital Course Date of Admission February 12, 2017 at 17:45 Date of Discharge February 16, 2017 at 13:36 Admitting Diagnosis weakness/FAILURE TO THRIVE HPI Porter Sandoval is a 71 year old male who was admitted on February 12, 2017 at 17:45 for Weakness,Failure To Thrive Hospital Course dc summary #[id number] Discharge Medications New Medications: Gabapentin* (Gabapentin*) 100 Mg Capsule 100 MG ORAL THREE TIMES A DAY, #90 CAP Polyethylene Glycol 3350* (Miralax*) 17 Gm Powd.pack 17 GM ORAL HSPRN PRN, #30 PACK Continued Medications: Acetaminophen With Codeine (T#3) (Tylenol #3 Tab*) Y Tab 1 TAB ORAL Q4H PRN for For Pain, TAB Amlodipine Besylate* (Amlodipine Besylate*) 5 Mg Tablet 5 MG ORAL BID, TAB Simvastatin (Zocor) 20 Mg Tablet 20 MG ORAL BEDTIME, TAB Discharge Discharge Disposition Patient was discharged to [facility] Discharge Diagnoses: Morro (René)Kesha NP February 17, 2017 14:41
== END 2017-02-16 13:36 | disposition home or self-care (01) | DRG 58 ==
LOC: EMR 16:50 → 4W 17:45 → EDBEDREQ 18:25 → 4W 20:10
DX: R26.89 Other abnormalities of gait and mobility (principal); G62.9 Polyneuropathy, unspecified; F01.50 Vascular dementia, unspecified severity, without behavioral disturbance, psychotic disturbance, mood disturbance, and anxiety; R62.7 Adult failure to thrive; I73.9 Peripheral vascular disease, unspecified; I10 Essential (primary) hypertension; Z86.73 Personal history of transient ischemic attack (TIA), and cerebral infarction without residual deficits; R53.1 Weakness; F17.200 Nicotine dependence, unspecified, uncomplicated; G31.84 Mild cognitive impairment of uncertain or unknown etiology; E78.5 Hyperlipidemia, unspecified; I67.9 Cerebrovascular disease, unspecified; K21.9 Gastro-esophageal reflux disease without esophagitis
CPT/HCPCS: 36415; 70450; 80048; 80053; 80061; 81003; 82306; 82553; 82607; 83690; 84443; 84484; 85025; 87081; 93306; 93925; 93970